=== PATIENT | female | born 1940 | race Caucasian/White ===

== ENCOUNTER 2021-08-13 14:46 | Emergency (ER) | payer MEDICARE ==
[~2021-08-13] VITALS: Ht 165.1 cm; Wt 68.0 kg
--- NOTE | 2021-08-13 14:50 | NUR ---
Patient to ER bed 4 to gown for evaluation. Side rails up. Report given to MARCELA
[2021-08-13 14:52] VITALS: BP_SYST 97
--- NOTE | 2021-08-13 15:00 | NUR ---
DR ROSS IN TO ASSESS
[2021-08-13 16:11] LABS: HEMATOCRIT 44.8 % (36-48); HEMOGLOBIN 14.6 g/dL (12.0-16.0); MEAN CORPUSCULAR HEMOGLOBIN 27 pg (27-31); MEAN CORPUSCULAR HGB CONC 33 % (32-36); MEAN CORPUSCULAR VOLUME 83 fL (79.0-98.0); PLATELET COUNT (AUTO) 207 K/uL (130-430); RED BLOOD CELL COUNT(AUTO) 5.39 MIL/uL (4.2-6.2); RED CELL DISTRIBUTION WIDTH 14.4 % (9.0-15.0)
[2021-08-13 16:21] LABS: ANION GAP 5 (5-15); CALCIUM 9.2 mg/dL (8.4-11.0); CHLORIDE 102 mmol/L (98-107); GLUCOSE 110 mg/dL (70-99); POTASSIUM 3.2 mmol/L (3.5-5.1); SODIUM SERUM 138 mmol/L (136-145); UREA NITROGEN, BLOOD 17 mg/dL (8-21)
--- NOTE | 2021-08-13 16:22 | NUR ---
UPDATE TO FAMILY, AWARE AND CONCERNS PASSED TO MELIDA ROSS
[2021-08-13 16:23] LABS: PROTHROMBIN TIME 10.3 SECS (9.5-12.5)
[2021-08-13 16:28] LABS: ALANINE AMINOTRANSFERASE 21 U/L (12-78); ALBUMIN 3.6 g/dL (3.4-4.8); ASPARTATE AMINOTRANSFERASE 20 U/L (10-37); BAND % (MANUAL) 5 % (0-6); BASOPHILS % (MANUAL) 0 % (0-2); EOSINOPHILS % (MANUAL) 0 % (0-7); LYMPHOCYTES % (MANUAL) 8 % (20-46); MONOCYTES % (MANUAL) 3 % (0-11); TOTAL BILIRUBIN 0.5 mg/dL (0.0-1.0)
--- NOTE | 2021-08-13 17:04 | NUR ---
DR ROSS IN TO REASSESS
--- NOTE | 2021-08-13 17:15 | NUR ---
UP AMBULATING TO BATHROOM STEADY GAIT, RESP UNLABORED, SKIN WARM AND DRY
--- NOTE | 2021-08-13 17:47 | NUR ---
UPDATE TO FAMILY, CT ORDERED, PT AWARE AND FAMILY TO WATER MAIN INSTALLER HELPER PATIENT IF DISCHARGED
[2021-08-13] MEDS ORDERED: NITR-85 PO (18:37)
[2021-08-13] MEDS ORDERED: cefTRIAXone 1 GM in LIDOCAINE 1%, 20 ML MDV 2.1 ML IM ONE (18:45)
[2021-08-13 19:01] VITALS: BP_SYST 124
--- NOTE | 2021-08-13 19:02 | NUR ---
Patient given written and verbal discharge instructions and verbalizes understanding. ER MD discussed with patient the results and treatment provided. Patient in stable condition. ID arm band removed. IV catheter removed intact and dressing applied, no active bleeding. Rx of ABX given. Patient educated on pain management and to follow up with PMD. Pain Scale . Opportunity for questions provided and answered. Medication side effect fact sheet provided.
== END 2021-08-13 19:01 | disposition home or self-care (01) ==
LOC: SED 14:46
DX: R55 Syncope and collapse (principal); N39.0 Urinary tract infection, site not specified; D72.829 Elevated white blood cell count, unspecified; I10 Essential (primary) hypertension; Z79.899 Other long term (current) drug therapy; Z88.8 Allergy status to other drugs, medicaments and biological substances; Z20.822 Contact with and (suspected) exposure to COVID-19
CPT/HCPCS: 36415; 70450; 71045; 74176; 76376; 80053; 81002; 82550; 83605; 84484; 85007; 85027; 85610; 85730; 87426; 93005; 96372; 99285; J0696; J2001